=== PATIENT | male | born 1955 | race Caucasian/White ===

== ENCOUNTER 2017-05-25 12:08 | Inpatient (IN) | payer MEDICARE, MEDICAID ==
[~2017-05-25] VITALS: Ht 172.7 cm; Wt 72.1 kg
--- NOTE | 2017-05-25 13:23 | Emergency Room Report ---
History of Present Illness General Chief Complaint: Overdose Source: Patient, EMS Present Illness HPI Patient presents by paramedics for change in mental status and bizarre behavior Patient was found running around in the streets Patient had reported to pour bleach on his skin There was also question of ingestion Patient has history of depression denies any homicidal or suicidal thoughts There was reports of possible methamphetamine abuse as well Patient's history of present illness is limited as the patient has bizarre thought process cannot provide appropriate input Allergies: Coded Allergies: No Known Allergies (Unverified , 05/25/17) Patient History Limited by: medical condition Past Medical History: see triage record Pertinent Family History: unable to obtain Reviewed Nursing Documentation: PMH: Agreed; PSxH: Agreed Nursing Documentation-PMH Past Medical History: No History, Except For History Of Psychiatric Problem: Yes - Depression Review of Systems All Other Systems: limited - Other than the ones mentioned in the history of present illness all others are reviewed however they do stay limited due to the patient's mental status Physical Exam Vital Signs Date Time Temp Pulse Resp B/P (MAP) Pulse Ox O2 Delivery O2 Flow Rate FiO2 05/25/17 12:21 97.6 76 16 143/98 99 Room Air 97.5 Sp02 EP Interpretation: reviewed, normal General Appearance: no apparent distress Head: normocephalic, atraumatic Eyes: bilateral eye PERRL ENT: normal pharynx, no angioedema Neck: supple, thyroid normal Respiratory: lungs clear, normal breath sounds Cardiovascular #1: regular rate, rhythm, no edema Gastrointestinal: non tender, soft Genitourinary: no CVA tenderness Musculoskeletal: normal inspection Neurologic: alert, responsive, 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 nml as tested Psychiatric: no suicidal/homicidal ideation, anxious Skin: other - Patient has erythema involving bilateral forearms, forehead and left lower extremity in line with what appears to be likely contact erythema no blister formation no sloughing of the skin Lymphatic: no adenopathy Medical Decision Making Diagnostic Impression: Primary Impression: Acidosis Additional Impression: Acute psychosis ER Course Patient presents with bizarre activity and thought process Initial blood work is being obtained for further medical evaluation Patient shows signs of elevated white blood cell count with possible secondary cellulitis Kidney function is also elevated with signs of acidosis and dehydration patient require further hydration and antibiotics at this time is not medically clear for further evaluation requires initial inpatient care Labs Test 05/25/17 12:40 05/25/17 21:00 05/25/17 22:00 05/26/17 04:30 White Blood Count 16.8 K/UL (4.8-10.8) 12.9 K/UL (4.8-10.8) Red Blood Count 5.45 M/UL (4.70-6.10) 4.63 M/UL (4.70-6.10) Hemoglobin 17.4 G/DL (14.2-18.0) 15.0 G/DL (14.2-18.0) Hematocrit 48.6 % (42.0-52.0) 41.1 % (42.0-52.0) Mean Corpuscular Volume 89 FL (80-99) 89 FL (80-99) Mean Corpuscular Hemoglobin 31.9 PG (27.0-31.0) 32.4 PG (27.0-31.0) Mean Corpuscular Hemoglobin Concent 35.8 G/DL (32.0-36.0) 36.5 G/DL (32.0-36.0) Red Cell Distribution Width 11.3 % (11.6-14.8) 11.2 % (11.6-14.8) Platelet Count 199 K/UL (150-450) 184 K/UL (150-450) Mean Platelet Volume 6.3 FL (6.5-10.1) 6.2 FL (6.5-10.1) Neutrophils (%) (Auto) 81.0 % (45.0-75.0) 64.8 % (45.0-75.0) Lymphocytes (%) (Auto) 11.5 % (20.0-45.0) 24.9 % (20.0-45.0) Monocytes (%) (Auto) 6.9 % (1.0-10.0) 9.2 % (1.0-10.0) Eosinophils (%) (Auto) 0.1 % (0.0-3.0) 0.1 % (0.0-3.0) Basophils (%) (Auto) 0.6 % (0.0-2.0) 1.0 % (0.0-2.0) Sodium Level 132 MMOL/L (136-145) 133 MMOL/L (136-145) 133 MMOL/L (136-145) Potassium Level 4.5 MMOL/L (3.5-5.1) 4.2 MMOL/L (3.5-5.1) 3.7 MMOL/L (3.5-5.1) Chloride Level 94 MMOL/L (98-107) 100 MMOL/L (98-107) 100 MMOL/L (98-107) Carbon Dioxide Level 18 MMOL/L (21-32) 21 MMOL/L (21-32) 21 MMOL/L (21-32) Anion Gap 20 mmol/L (5-15) 12 mmol/L (5-15) 12 mmol/L (5-15) Blood Urea Nitrogen 69 mg/dL (7-18) 56 mg/dL (7-18) 39 mg/dL (7-18) Creatinine 2.2 MG/DL (0.55-1.30) 1.6 MG/DL (0.55-1.30) 1.1 MG/DL (0.55-1.30) Estimat Glomerular Filtration Rate 30.8 mL/min (>60) 44.5 mL/min (>60) > 60 mL/min (>60) Glucose Level 83 MG/DL (74-106) 132 MG/DL (74-106) 98 MG/DL (74-106) Calcium Level 8.7 MG/DL (8.5-10.1) 8.0 MG/DL (8.5-10.1) 7.9 MG/DL (8.5-10.1) Total Bilirubin 2.3 MG/DL (0.2-1.0) 1.7 MG/DL (0.2-1.0) 1.7 MG/DL (0.2-1.0) Direct Bilirubin 1.0 MG/DL (0.0-0.3) 0.8 MG/DL (0.0-0.3) 0.5 MG/DL (0.0-0.3) Aspartate Amino Transf (AST/SGOT) 477 U/L (15-37) 370 U/L (15-37) 288 U/L (15-37) Alanine Aminotransferase (ALT/SGPT) 209 U/L (12-78) 184 U/L (12-78) 156 U/L (12-78) Alkaline Phosphatase 94 U/L (46-116) 79 U/L (46-116) 70 U/L (46-116) Total Protein 8.4 G/DL (6.4-8.2) 7.4 G/DL (6.4-8.2) 6.8 G/DL (6.4-8.2) Albumin 4.2 G/DL (3.4-5.0) 3.5 G/DL (3.4-5.0) 3.0 G/DL (3.4-5.0) Globulin 4.2 g/dL 3.9 g/dL 3.8 g/dL Albumin/Globulin Ratio 1.0 (1.0-2.7) 0.9 (1.0-2.7) 0.8 (1.0-2.7) Salicylates Level 1.9 ug/mL (2.8-20) Urine Opiates Screen Negative (NEGATIVE) Acetaminophen Level < 2 MCG/ML (10-30) Urine Barbiturates Screen Negative (NEGATIVE) Phencyclidine (PCP) Screen Negative (NEGATIVE) Urine Amphetamines Screen Positive (NEGATIVE) Urine Benzodiazepines Screen Negative (NEGATIVE) Urine Cocaine Screen Negative (NEGATIVE) Urine Marijuana (THC) Screen Positive (NEGATIVE) Serum Alcohol < 3 mg/dL Urine Random Sodium 16 mmol/L (20-110) Urine Creatinine 83.1 MG/DL (30.0-125.0) Uric Acid 10.3 MG/DL (2.6-7.2) 8.8 MG/DL (2.6-7.2) Total Creatine Kinase 8800 U/L (26-308) 4911 U/L (26-308) Magnesium Level 2.5 MG/DL (1.8-2.4) Vitamin B12 Level 766 PG/ML (193-986) Folate 17.1 NG/ML (8.6-58.9) Thyroid Stimulating Hormone (TSH) 1.908 uiU/mL (0.358-3.740) Test 05/26/17 05:00 Urine Osmolality 715 mOsm/kg (429-449) Rhythm Strip Diag. Results EP Interpretation: yes Rate: 78 Rhythm: NSR, no PVC's, no ectopy Last Vital Signs Date Time Temp Pulse Resp B/P (MAP) Pulse Ox O2 Delivery O2 Flow Rate FiO2 05/25/17 12:21 97.6 76 16 143/98 99 Room Air 97.5 Status: improved Disposition: ADMITTED INPATIENT Condition: Serious Referrals: NOT CHOSEN IPA/,REFERRING (PCP) Jennifer Joseph DO May 25, 2017 13:23
[2017-05-25 13:39] LABS: ANION GAP 20 mmol/L (5-15); BLOOD UREA NITROGEN 69 mg/dL (7-18); CALCIUM 8.7 MG/DL (8.5-10.1); CARBON DIOXIDE 18 MMOL/L (21-32); CHLORIDE 94 MMOL/L (98-107); CREATININE 2.2 MG/DL (0.55-1.30); POTASSIUM 4.5 MMOL/L (3.5-5.1); SODIUM 132 MMOL/L (136-145)
[2017-05-25 13:42] LABS: BASOPHILS % (AUTO) 0.6 % (0.0-2.0); EOSINOPHILS % (AUTO) 0.1 % (0.0-3.0); HEMATOCRIT 48.6 % (42.0-52.0); HEMOGLOBIN 17.4 G/DL (14.2-18.0); LYMPHOCYTES % (AUTO) 11.5 % (20.0-45.0); MEAN CORPUSCULAR VOLUME 89 FL (80-99); MONOCYTES % (AUTO) 6.9 % (1.0-10.0); PLATELET COUNT 199 K/UL (150-450); RED BLOOD COUNT 5.45 M/UL (4.70-6.10); RED CELL DISTRIBUTION WIDTH 11.3 % (11.6-14.8); WHITE BLOOD COUNT 16.8 K/UL (4.8-10.8)
[2017-05-25 13:49] LABS: ALANINE AMINOTRANSFERASE 209 U/L (12-78); ALBUMIN 4.2 G/DL (3.4-5.0); ALKALINE PHOSPHATASE 94 U/L (46-116); ASPARTATE AMINO TRANSFERASE 477 U/L (15-37); BILIRUBIN,TOTAL 2.3 MG/DL (0.2-1.0)
[2017-05-25 14:34] VITALS: BP 153/93
[2017-05-25] MEDS ORDERED: cefTRIAXone 1 GM in NS 55 ML IVPB ONE (14:45)
[2017-05-25 15:45] VITALS: BP 133/75
[2017-05-25 17:13] VITALS: BP 124/81
[2017-05-25 18:09] VITALS: BP 128/85
[2017-05-25 18:28] VITALS: BP 123/74
[2017-05-25] MEDS ORDERED: LORazepam 1mg tab ORAL PRN (19:00)
[2017-05-25 20:00] VITALS: BP 132/73
[2017-05-25] MEDS ORDERED: Vancomycin 1250mg/D5W 250ml IVPB ONE (21:00)
[2017-05-25] MEDS ORDERED: Levofloxacin 500mg tab ORAL ONE (21:00)
[2017-05-25] MEDS: Heparin 5000 units/ml inj SUBQ SCH (21:28)
[2017-05-25 22:22] LABS: ANION GAP 12 mmol/L (5-15); BLOOD UREA NITROGEN 56 mg/dL (7-18); CARBON DIOXIDE 21 MMOL/L (21-32); CHLORIDE 100 MMOL/L (98-107); CREATININE 1.6 MG/DL (0.55-1.30); POTASSIUM 4.2 MMOL/L (3.5-5.1); SODIUM 133 MMOL/L (136-145)
[2017-05-25 22:36] LABS: ALANINE AMINOTRANSFERASE 184 U/L (12-78); ALBUMIN 3.5 G/DL (3.4-5.0); ALBUMIN/GLOBULIN RATIO 0.9 (1.0-2.7); ALKALINE PHOSPHATASE 79 U/L (46-116); ASPARTATE AMINO TRANSFERASE 370 U/L (15-37); BILIRUBIN,TOTAL 1.7 MG/DL (0.2-1.0); CREATINE KINASE 8800 U/L (26-308)
[2017-05-25 22:37] LABS: BILIRUBIN,DIRECT 0.8 MG/DL (0.0-0.3)
[2017-05-26] VITALS (7 sets, daily range): BP systolic 106–126; BP diastolic 64–72
--- NOTE | 2017-05-26 00:46 | History and Physical Report ---
DATE OF ADMISSION: 05/25/2017 REASON FOR ADMISSION: Altered mentation and overdose. HISTORY OF PRESENT ILLNESS: This is a 61-year-old male with psychiatric disorder who was found by paramedics in the street displaying bizarre behavior. He was running around. He apparently had poured some bleach on his skin because he thought he had scabies. He also may have drank some of it. He denied any suicidal or homicidal thoughts and said that he overdosed with methamphetamines at a alliance party. He also admitted to history of depression. PAST MEDICAL HISTORY: Includes depression and hepatitis C infection otherwise unobtainable at this time. MEDICATIONS: Unknown. ALLERGIES: None known. SOCIAL HISTORY: Positive for smoking, substance abuse. Denies alcohol abuse. FAMILY HISTORY: Not obtainable. REVIEW OF SYSTEMS: Cannot be reliably obtained from the patient at this time. PHYSICAL EXAMINATION: GENERAL: He is alert, rambling thoughts and speech noted, direct answer to any questioning is not possible. VITAL SIGNS: Blood pressure 143/98, pulse 76, respiratory rate 16, afebrile. HEENT: Conjunctivae pink. Sclerae are anicteric. Oropharynx clear. NECK: Supple. No thyromegaly. LUNGS: Clear. CARDIAC: Regular rhythm and rate. Normal S1 and S2 with no murmur, rub, or gallop. ABDOMEN: Soft and nontender with no hepatomegaly. EXTREMITIES: Without edema. No motor or sensory deficits. No tremor. No asterixis. SKIN: Notable for diffuse erythema and open skin areas over the forearms bilaterally, over the forehead, and over the left leg predominantly. There is no blister formation. There is no adenopathy. LABORATORY DATA: White count 16.8, hemoglobin 17.4, platelets 199. Toxicology screen is positive for amphetamines and marijuana. Sodium 132, potassium 4.5, chloride 94, bicarb 18, BUN 69, creatinine 2.2. AST and ALT 477 and 209. IMPRESSION: 1. Cellulitis. 2. Possible sepsis. 3. Possible scabies. 4. Possible chemical reaction to skin. 5. Metabolic acidosis. 6. Hyponatremia. 7. Hypochloremia. 8. Acute renal failure. 9. History of hepatitis C now with transaminitis. 10. Altered mentation and metabolic encephalopathy. 11. History of depression. PLAN: 1. Cardiac monitoring. 2. Saline hydration. 3. Sitter at bedside. 4. Psych evaluation. 5. Broad-spectrum antibiotics. 6. Skin care. 7. DVT prophylaxis. 8. Metabolic profile. 9. Followup renal and hepatic function studies. Pedro Page M.D. DR: Jarrell JOB#: [id number] CC:
[2017-05-26 05:43] LABS: EOSINOPHILS % (AUTO) 0.1 % (0.0-3.0); HEMATOCRIT 41.1 % (42.0-52.0); LYMPHOCYTES % (AUTO) 24.9 % (20.0-45.0); MEAN CORPUSCULAR VOLUME 89 FL (80-99); MONOCYTES % (AUTO) 9.2 % (1.0-10.0); NEUTROPHILS % (AUTO) 64.8 % (45.0-75.0); PLATELET COUNT 184 K/UL (150-450); RED BLOOD COUNT 4.63 M/UL (4.70-6.10); RED CELL DISTRIBUTION WIDTH 11.2 % (11.6-14.8); WHITE BLOOD COUNT 12.9 K/UL (4.8-10.8)
[2017-05-26 06:09] LABS: ALANINE AMINOTRANSFERASE 156 U/L (12-78); ALBUMIN/GLOBULIN RATIO 0.8 (1.0-2.7); ALKALINE PHOSPHATASE 70 U/L (46-116); ANION GAP 12 mmol/L (5-15); ASPARTATE AMINO TRANSFERASE 288 U/L (15-37); BILIRUBIN,TOTAL 1.7 MG/DL (0.2-1.0); BLOOD UREA NITROGEN 39 mg/dL (7-18); CALCIUM 7.9 MG/DL (8.5-10.1); CARBON DIOXIDE 21 MMOL/L (21-32); CHLORIDE 100 MMOL/L (98-107); CREATININE 1.1 MG/DL (0.55-1.30); POTASSIUM 3.7 MMOL/L (3.5-5.1); SODIUM 133 MMOL/L (136-145)
[2017-05-26 06:14] LABS: CREATINE KINASE 4911 U/L (26-308)
[2017-05-26 06:22] LABS: BILIRUBIN,DIRECT 0.5 MG/DL (0.0-0.3)
[2017-05-26] MEDS: Heparin 5000 units/ml inj SUBQ SCH ×2 (08:32→21:24)
--- NOTE | 2017-05-26 15:48 | Consultation ---
History of Present Illness General Date patient seen: May 26, 2017 Chief Complaint: Overdose Present Illness HPI 61-year-old male with hx of depression and meth use who was found by paramedics in the street displaying bizarre behavior. The pt was running around and was not cooperating with eval. the pt was speaking fast and his speech was pressured. the pt stated that he mixed the alcohol and meth. the pt stated that he has hx of alcohol dependence and substance use for a several years. the pt denied si/hi. the pt denied psychotic meds/ the pt is not a danger to self or others. the pt stated that he would go back to AA. Allergies: Coded Allergies: No Known Allergies (Unverified , 05/25/17) Patient History Limited by: medical condition History Provided By: Patient, Medical Record, PMD Healthcare decision maker self Resuscitation status Full Code Advanced Directive on File No Past Medical/Surgical History Past Medical/Surgical History: (1) Altered mental status (2) Acidosis (3) Acute psychosis Review of Systems Psychiatric: Reports: prior hx, depressed feelings, emotional problems Physical Exam General Appearance: no apparent distress, alert Neurologic: alert, oriented x 3, responsive, normal mood/affect Last 24 Hour Vital Signs Date Time Temp Pulse Resp B/P (MAP) Pulse Ox O2 Delivery O2 Flow Rate FiO2 05/26/17 12:00 97.7 70 20 109/64 96 Room Air 97.7 70 05/26/17 11:43 70 05/26/17 08:00 97.5 63 20 112/66 99 Room Air 97.5 63 05/26/17 07:32 72 05/26/17 04:00 97.0 67 20 109/66 99 Room Air 97.0 67 05/26/17 04:00 67 05/26/17 00:00 87 05/26/17 00:00 98.8 87 20 126/72 99 Room Air 98.8 87 05/25/17 20:00 94 05/25/17 20:00 98.2 94 20 132/73 99 Room Air 98.2 94 05/25/17 18:32 97.5 88 24 128/86 100 Room Air 05/25/17 18:28 98.6 97 24 123/74 99 Room Air 98.6 97 05/25/17 18:09 88 24 128/85 100 Room Air 05/25/17 17:13 82 24 124/81 100 Room Air 05/25/17 15:45 97.5 82 28 133/75 100 Room Air 97.5 Intake and Output 05/25/17 05/26/17 19:00 07:00 Intake Total 1250 ml Output Total 300 ml Balance 950 ml IV Total 1250 ml Output Urine Total 300 ml # Voids 1 1 Laboratory Tests Test 05/25/17 21:00 05/25/17 22:00 05/26/17 04:30 05/26/17 05:00 Urine Random Sodium 16 mmol/L (20-110) L Urine Creatinine 83.1 MG/DL (30.0-125.0) Sodium Level 133 MMOL/L (136-145) L 133 MMOL/L (136-145) L Potassium Level 4.2 MMOL/L (3.5-5.1) 3.7 MMOL/L (3.5-5.1) Chloride Level 100 MMOL/L (98-107) 100 MMOL/L (98-107) Carbon Dioxide Level 21 MMOL/L (21-32) 21 MMOL/L (21-32) Anion Gap 12 mmol/L (5-15) 12 mmol/L (5-15) Blood Urea Nitrogen 56 mg/dL (7-18) H 39 mg/dL (7-18) H Creatinine 1.6 MG/DL (0.55-1.30) H 1.1 MG/DL (0.55-1.30) Estimat Glomerular Filtration Rate 44.5 mL/min (>60) > 60 mL/min (>60) Glucose Level 132 MG/DL (74-106) H 98 MG/DL (74-106) Uric Acid 10.3 MG/DL (2.6-7.2) H 8.8 MG/DL (2.6-7.2) H Calcium Level 8.0 MG/DL (8.5-10.1) L 7.9 MG/DL (8.5-10.1) L Total Bilirubin 1.7 MG/DL (0.2-1.0) H 1.7 MG/DL (0.2-1.0) H Direct Bilirubin 0.8 MG/DL (0.0-0.3) H 0.5 MG/DL (0.0-0.3) H Aspartate Amino Transf (AST/SGOT) 370 U/L (15-37) H 288 U/L (15-37) H Alanine Aminotransferase (ALT/SGPT) 184 U/L (12-78) H 156 U/L (12-78) H Alkaline Phosphatase 79 U/L (46-116) 70 U/L (46-116) Total Creatine Kinase 8800 U/L (26-308) H 4911 U/L (26-308) H Total Protein 7.4 G/DL (6.4-8.2) 6.8 G/DL (6.4-8.2) Albumin 3.5 G/DL (3.4-5.0) 3.0 G/DL (3.4-5.0) L Globulin 3.9 g/dL 3.8 g/dL Albumin/Globulin Ratio 0.9 (1.0-2.7) L 0.8 (1.0-2.7) L White Blood Count 12.9 K/UL (4.8-10.8) H Red Blood Count 4.63 M/UL (4.70-6.10) L Hemoglobin 15.0 G/DL (14.2-18.0) Hematocrit 41.1 % (42.0-52.0) L Mean Corpuscular Volume 89 FL (80-99) Mean Corpuscular Hemoglobin 32.4 PG (27.0-31.0) H Mean Corpuscular Hemoglobin Concent 36.5 G/DL (32.0-36.0) H Red Cell Distribution Width 11.2 % (11.6-14.8) L Platelet Count 184 K/UL (150-450) Mean Platelet Volume 6.2 FL (6.5-10.1) L Neutrophils (%) (Auto) 64.8 % (45.0-75.0) Lymphocytes (%) (Auto) 24.9 % (20.0-45.0) Monocytes (%) (Auto) 9.2 % (1.0-10.0) Eosinophils (%) (Auto) 0.1 % (0.0-3.0) Basophils (%) (Auto) 1.0 % (0.0-2.0) Magnesium Level 2.5 MG/DL (1.8-2.4) H Vitamin B12 Level 766 PG/ML (193-986) Folate 17.1 NG/ML (8.6-58.9) Thyroid Stimulating Hormone (TSH) 1.908 uiU/mL (0.358-3.740) Urine Osmolality 715 mOsm/kg (429-449) H Height (Feet): 5 Height (Inches): 8.00 Weight (Pounds): 159 Medications Current Medications Medications (Trade) Dose Ordered Sig/Piedad Route PRN Reason Start Time Stop Time Status Last Admin Dose Admin Heparin Sodium (Porcine) (Heparin 5000 units/ml) 5,000 units EVERY 12 HOURS SUBQ 05/25/17 21:00 06/24/17 20:59 05/26/17 08:32 Levofloxacin (Levaquin) 250 mg QHS ORAL 05/26/17 21:00 06/01/17 20:59 Lorazepam (Ativan) 1 mg Q6H PRN ORAL For Anxiety 05/25/17 19:00 06/01/17 18:59 Sodium Chloride 1,000 ml @ 150 mls/hr Q6H40M IV 05/26/17 15:30 06/25/17 15:29 Vancomycin HCl (Vanco rx to dose) 1 ea DAILYPRN PRN MISC Per rx protocol 05/25/17 19:00 06/24/17 18:59 Vancomycin HCl 1 gm/Dextrose 275 ml @ 183.708 mls/hr Q24H IVPB 05/26/17 21:00 05/31/17 20:59 Assessment/Plan Status: stable, progressing Assessment/Plan MDD alcohol dependence meth use depakote 500mg qhs -valium prn for alcohol w/d -risperdal 1mg qhs Javier Hogan M.D. May 26, 2017 15:48
[2017-05-26] MEDS: NS w/KCl 20mEq 1,000 ML IV SCH ×2 (16:00→22:18)
[2017-05-26] MEDS ORDERED: Vancomycin 1gm in D5W 275ml IVPB SCH (21:00)
[2017-05-26] MEDS ORDERED: Depakote 500mg tab ORAL SCH (21:00)
--- NOTE | 2017-05-26 21:45 | Consultation ---
DATE OF CONSULTATION: 05/26/2017 NEPHROLOGY CONSULTATION CONSULTING PHYSICIAN: Mark Anthony Saavedra M.D. REASON FOR CONSULTATION: Elevated BUN and creatinine. HISTORY OF PRESENT ILLNESS: The patient is a 61-year-old man, who apparently presented with altered mental status. He was found to have positive methamphetamine in drug screen is well as marijuana. He says he drinks a moderate amount of alcohol several times a week and had a small amount of methamphetamine on the day of admission. He presented with abnormal laboratories and confusion. He also has a history of hepatitis C in the past. PAST SURGICAL HISTORY: None. ALLERGIES: None known. HABITS: Include cigarette smoking, alcohol, and amphetamines as above. He used heroin in the past for very short periods of time. SYSTEM REVIEW: HEAD EYES, EARS, NOSE, AND THROAT: Vision and hearing is good. ENDOCRINE: No awareness of diabetes or thyroid disease. PULMONARY: Mild cough when smoking. No asthma or TB. CARDIAC: No angina or NC. GASTROINTESTINAL: No gastrointestinal bleeding or ulcers. GENITOURINARY: No dysuria, hematuria, or kidney stones. NEUROLOGIC: No CVA, syncope, or seizures. PHYSICAL EXAMINATION: GENERAL: The patient is a well-developed man, alert, lying in bed. VITAL SIGNS: Temperature 97.7, pulse 70, respirations 20, and blood pressure 109/64. HEENT: Head, eyes, ears, nose, and throat, sclerae are nonicteric. Ocular motions intact in all directions. Oral mucosa moist. NECK: No adenopathy. LUNGS: Clear. HEART: Regular rhythm. No murmur. ABDOMEN: Soft without organomegaly or masses. EXTREMITIES: No edema, cyanosis, or clubbing. NEUROLOGIC: No focal findings. SKIN: Shows some erythema diffuse and some abrasions to the forearms and arms. PSYCHIATRIC: The patient has rambling pressured speech. PERTINENT LABORATORIES: White count 12.9, hemoglobin 15, improved from 16.8 to 17.4. The BUN is 69 and creatinine 2.2 on admission, today 39 and 1.1. Sodium 133, potassium 3.7, chloride 100, and CO2 21. CK 8800 it is down to . He has elevated liver enzymes. Albumin is 3.0. Urine osmolality 715, urine sodium is 16. IMPRESSION: 1. Acute kidney injury, likely from dehydration. 2. Rhabdomyolysis contributes to acute kidney injury. 3. History of use of nonsteroidal anti-inflammatory agents. 4. Methamphetamine user. 5. History of hepatitis C. PLAN: Continuous vigorous hydration and follow up on his serial CPKs. Mark Anthony Saavedra M.D. DR: PAT JOB#: [id number] CC:
--- NOTE | 2017-05-26 22:15 | Consultation ---
DATE OF CONSULTATION: 05/26/2017 INFECTIOUS DISEASE CONSULTATION CONSULTING PHYSICIAN: Marquise Grant M.D. PRIMARY ATTENDING PHYSICIAN: Pedro Page M.D. REASON FOR CONSULTATION: Cellulitis. HISTORY OF PRESENT ILLNESS: The patient is a 61-year-old white male admitted yesterday with altered mental status. The patient has bizarre behavior and psychosis. He states that he thought he had scabies and he poured some bleach over his body and also drank some bleach. PAST MEDICAL HISTORY: Significant for emphysema, hepatitis C, major depression, and degenerative joint disease. He had some liver damage. MEDICATIONS: Levaquin, vancomycin, heparin, sodium chloride, and lorazepam. ALLERGIES: No known drug allergy. SOCIAL HISTORY: He is single. He is originally from [place]. On disability. Smoking one pack cigarettes daily from 1971. Drinking alcohol. Use drugs, methamphetamine. REVIEW OF SYSTEMS: No significant pain. No nausea. No vomiting. He has chronic coughing. No problem passing urine. PHYSICAL EXAMINATION: VITAL SIGNS: Temperature 97.7, pulse is 70, and blood pressure is 109/64. GENERAL APPEARANCE: No acute distress. HEAD AND NECK: Hartly conjunctivae. No significant oral lesion. HEART: S1, S2. Regular. Normal rate. LUNGS: Clear. ABDOMEN: Soft and nontender. EXTREMITIES: He has no edema. SKIN: The patient erythema/ulcers in forearms looks like chemical burning. LABORATORY DATA: WBC today is 12.9, hemoglobin 15, hematocrit 41.1, and platelets 184,000. Sodium 137, potassium 3.7, chloride 100, bicarbonate 21, BUN 39, and creatinine 1.1. BUN at the time of admission was 69 and creatinine 2.2. Magnesium 2.5. Bilirubin is 1.7, it was 2.3 before. AST 288 and ALT 156. CK-MB 4911, it was 800 before. IMPRESSION: Chemical burn secondary to bleach more significant in forearms, less likely cellulitis. Also doubt that the patient has scabies. The patient has acute renal failure, worsening of liver function, elevated transaminases, hepatitis C, major depression, psychosis, and degenerative joint disease of the spine. RECOMMENDATION: We will continue current antibiotic Levaquin and vancomycin. If the patient stays stable and culture remains negative, we will discontinue antibiotic. The patient will decide about outpatient treatment for hepatitis C. At the end of my exam, I thank Dr. Page for involving me in the care of this patient. Marquise Grant M.D. DR: RD JOB#: [id number] CC: OLIVIA
[2017-05-27] VITALS: BP 118/72
[2017-05-27 04:00] VITALS: BP 102/55
--- NOTE | 2017-05-27 04:45 | Progress Note ---
DATE: 05/26/2017 INTERNAL MEDICINE AND CARDIOLOGY PROGRESS NOTE SUBJECTIVE: The patient is more directable and calm today. Itching has decreased. No chest pain or shortness of breath. He is on IV antibiotics and skin care. OBJECTIVE: VITAL SIGNS: Blood pressure 109/66, pulse 67, respirations 23, afebrile, and room air oxygen saturation 95%. No bleeding or erythema from skin lesions on extremities HEENT: Conjunctiva pink. Oropharynx clear. NECK: Supple. LUNGS: Clear. CARDIAC: Regular. Normal S1, S2 with no murmur. ABDOMEN: Soft. EXTREMITIES: No edema. LABORATORY DATA: Sodium 133, potassium 3.7, bicarbonate 21, BUN 39, and creatinine 1.1. Magnesium 2.5. AST and ALT have decreased to 188 and 156 respectively. CK has decreased from 8800 to 4900. B12, folate, and thyroid function are within normal limits. IMPRESSION: 1. Metabolic and toxic encephalopathy. 2. Metabolic acidosis. 3. Rhabdomyolysis. 4. Acute renal failure. 5. Methamphetamine use. 6. Hepatitis C positive. 7. Acute on chronic transaminitis. 8. Chemical carcamo with secondary cellulitis. 9. Leukocytosis, improved. 10. Mild protein-calorie malnutrition. PLAN: 1. Antimicrobials. 2. Hydration. 3. Monitor chemistry panel and CK level. 4. Monitor renal function. 5. Skin care. 6. Appreciate psychiatric consultation. 7. Protein supplement. 8. Continue cardiac monitoring and sitter at bedside. Pedro Page M.D. DR: TREVOR JOB#: [id number] CC:
[2017-05-27] MEDS: NS w/KCl 20mEq 1,000 ML IV SCH ×2 (05:00→11:45)
[2017-05-27 05:22] LABS: ANION GAP 8 mmol/L (5-15); BLOOD UREA NITROGEN 19 mg/dL (7-18); CALCIUM 7.6 MG/DL (8.5-10.1); CARBON DIOXIDE 25 MMOL/L (21-32); CHLORIDE 104 MMOL/L (98-107); CREATINE KINASE 1347 U/L (26-308); CREATININE 0.8 MG/DL (0.55-1.30); PHOSPHORUS 1.8 MG/DL (2.5-4.9); POTASSIUM 4.3 MMOL/L (3.5-5.1); SODIUM 137 MMOL/L (136-145)
[2017-05-27 08:00] VITALS: BP 112/55
[2017-05-27] MEDS: Heparin 5000 units/ml inj SUBQ SCH ×2 (08:13→21:57)
[2017-05-27] MEDS ORDERED: Thiamine 100mg tab ORAL SCH (09:00)
[2017-05-27 12:00] VITALS: BP 116/64
[2017-05-27] MEDS ORDERED: NS w/KCl 20mEq 1,000 ML IV SCH (15:30)
--- NOTE | 2017-05-27 15:35 | Nephrology Progress Note ---
Assessment/Plan Problem List: (1) Hypophosphatemia (2) Rhabdomyolysis (3) SEBAS (acute kidney injury) (4) Altered mental status Plan iv adjust, phos ordered Subjective Constitutional: Reports: weakness HEENT: Reports: no symptoms Genitourinary: Reports: no symptoms Neurologic/Psychiatric: Reports: no symptoms Objective Objective Last 24 Hour Vital Signs Date Time Temp Pulse Resp B/P (MAP) Pulse Ox O2 Delivery O2 Flow Rate FiO2 05/27/17 12:00 97.7 62 20 116/64 97 Room Air 97.7 05/27/17 11:47 60 05/27/17 08:00 97.3 62 20 112/55 96 Room Air 97.3 05/27/17 07:56 74 05/27/17 04:00 98.4 68 20 102/55 98 Room Air 98.4 05/27/17 03:55 56 05/27/17 00:00 99.0 64 20 118/72 97 Room Air 99.0 05/26/17 23:39 73 05/26/17 20:00 98.7 68 20 110/70 97 Room Air 98.7 68 05/26/17 19:06 67 05/26/17 16:00 98.1 67 23 109/66 95 Room Air 98.1 67 Intake and Output 05/26/17 05/27/17 19:00 07:00 Intake Total 1880 ml 1205.056 ml Output Total 800 ml 700 ml Balance 1080 ml 505.056 ml Intake Oral 680 ml IV Total 1200 ml 1205.056 ml Output Urine Total 800 ml 700 ml Laboratory Tests 05/27/17 03:25: Sodium Level 137, Potassium Level 4.3, Chloride Level 104, Carbon Dioxide Level 25, Anion Gap 8, Blood Urea Nitrogen 19H, Creatinine 0.8, Estimat Glomerular Filtration Rate > 60, Glucose Level 127H, Calcium Level 7.6L, Phosphorus Level 1.8L, Total Creatine Kinase 1347H Height (Feet): 5 Height (Inches): 8.00 Weight (Pounds): 159 General Appearance: no apparent distress, alert EENT: normal ENT inspection Neck: normal alignment Cardiovascular: normal rate Respiratory/Chest: lungs clear Abdomen: non tender, soft 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
[2017-05-27 16:00] VITALS: BP 108/63
[2017-05-27] MEDS: Potassium Phosphate 15 MEQ in 1/2 NS 1000ml 1,000 ML IV SCH (17:30)
[2017-05-27] MEDS ORDERED: Phospha 250 Neutral tab ORAL SCH (18:00)
[2017-05-27 20:00] VITALS: BP 122/75
[2017-05-27] MEDS ORDERED: Potassium Phosphate 15 MEQ in 1/2 NS 1000ml 1,000 ML IV SCH (21:00)
[2017-05-27] MEDS: Depakote 500mg tab ORAL SCH ×2 (21:00→21:54)
[2017-05-27] MEDS: Vancomycin 1 GM in D5W 275 ML IVPB SCH (21:56)
--- NOTE | 2017-05-27 22:30 | Progress Note ---
DATE: 05/27/2017 CARDIOLOGY PROGRESS NOTE SUBJECTIVE: The patient has no hold, it is no longer necessary. He is calm and cooperative. He notes no abdominal pain. He is tolerating his diet. Monitored rhythm, sinus. OBJECTIVE: VITAL SIGNS: Blood pressure 112/55, pulse 52, and respiratory rate 20. Afebrile. SKIN: With no active erythema or weeping. NECK: Supple. LUNGS: Clear. CARDIAC: Regular. Normal S1, S2. There is no murmur. ABDOMEN: Soft. EXTREMITIES: Are without edema. LABORATORY DATA: BUN 19 and creatinine 0.8. Phosphorus 1.8. CK is down to 1347. IMPRESSION: 1. Recovering rhabdomyolysis. 2. Resolving acute renal failure. 3. Improving cellulitis of the extremities. 4. Status post methamphetamine use. 5. Bipolar disorder. 6. History of hepatitis C. 7. Metabolic acidosis, resolved. 8. Mild protein-calorie malnutrition. 9. Hypophosphatemia. PLAN: 1. Decrease IV fluids. 2. Continue antimicrobials. 3. Discontinue telemetry. 4. Replace phosphorus. 5. Continue monitoring metabolic parameters placement. Pedro Page M.D. DR: LISA JOB#: [id number] CC:
[2017-05-28] VITALS: BP 110/60
[2017-05-28] MEDS: Potassium Phosphate 15 MEQ in 1/2 NS 1000ml 1,000 ML IV SCH ×3 (01:32→17:12)
[2017-05-28 04:00] VITALS: BP 127/72
[2017-05-28 07:26] LABS: ANION GAP 7 mmol/L (5-15); BLOOD UREA NITROGEN 9 mg/dL (7-18); CALCIUM 7.9 MG/DL (8.5-10.1); CARBON DIOXIDE 25 MMOL/L (21-32); CHLORIDE 104 MMOL/L (98-107); CREATINE KINASE 811 U/L (26-308); CREATININE 0.7 MG/DL (0.55-1.30); PHOSPHORUS 2.4 MG/DL (2.5-4.9); POTASSIUM 4.3 MMOL/L (3.5-5.1); SODIUM 136 MMOL/L (136-145)
[2017-05-28 08:00] VITALS: BP 122/66
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
[2017-05-28] MEDS: Phospha 250 Neutral tab ORAL SCH ×3 (09:27→17:12)
[2017-05-28] MEDS: Thiamine 100mg tab ORAL SCH (09:27)
[2017-05-28] MEDS: Heparin 5000 units/ml inj SUBQ SCH ×2 (09:32→20:55)
[2017-05-28] MEDS ORDERED: 1/2 NS 1000ml IV ONE (10:51)
[2017-05-28 12:07] VITALS: BP 124/79
--- NOTE | 2017-05-28 12:59 | Nephrology Progress Note ---
Assessment/Plan Problem List: (1) Hypophosphatemia (2) Rhabdomyolysis (3) SEBAS (acute kidney injury) (4) Altered mental status Plan iv adjust, phos ordered Subjective Constitutional: Reports: weakness HEENT: Reports: no symptoms Genitourinary: Reports: no symptoms Neurologic/Psychiatric: Reports: no symptoms Objective Objective Last 24 Hour Vital Signs Date Time Temp Pulse Resp B/P (MAP) Pulse Ox O2 Delivery O2 Flow Rate FiO2 05/28/17 12:07 97.9 57 18 124/79 97 Room Air 97.9 05/28/17 08:00 97.6 63 18 122/66 98 Room Air 97.6 05/28/17 04:00 97.7 57 18 127/72 99 Room Air 97.7 05/28/17 00:00 Room Air 05/28/17 00:00 98.2 66 19 110/60 97 Room Air 98.2 05/27/17 20:55 Room Air 05/27/17 20:00 97.9 64 18 122/75 97 Room Air 97.9 05/27/17 16:00 98.2 61 20 108/63 98 Room Air 98.2 05/27/17 15:52 61 Intake and Output 05/27/17 05/28/17 19:00 07:00 Intake Total 1709.5 ml 1270.000 ml Output Total 1600 ml Balance 109.5 ml 1270.000 ml Intake Oral 532 ml 120 ml IV Total 1177.5 ml 1150.000 ml Output Urine Total 1600 ml # Voids 3 # Bowel Movements 1 Laboratory Tests 05/28/17 05:50: Sodium Level 136, Potassium Level 4.3, Chloride Level 104, Carbon Dioxide Level 25, Anion Gap 7, Blood Urea Nitrogen 9, Creatinine 0.7, Estimat Glomerular Filtration Rate > 60, Glucose Level 111H, Calcium Level 7.9L, Phosphorus Level 2.4L, Total Creatine Kinase 811H Height (Feet): 5 Height (Inches): 8.00 Weight (Pounds): 159 General Appearance: no apparent distress, alert EENT: normal ENT inspection Neck: normal alignment Cardiovascular: normal rate Respiratory/Chest: lungs clear Abdomen: non tender, soft Extremities: moderate edema 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
[2017-05-28 16:00] VITALS: BP 128/76
[2017-05-28 20:00] VITALS: BP 131/77
[2017-05-28] MEDS: Depakote 500mg tab ORAL SCH (20:57)
[2017-05-28] MEDS: Vancomycin 1 GM in D5W 275 ML IVPB SCH (21:17)
[2017-05-29] VITALS: BP 140/84
[2017-05-29] MEDS: Potassium Phosphate 15 MEQ in 1/2 NS 1000ml 1,000 ML IV SCH ×3 (02:15→18:43)
[2017-05-29 04:00] VITALS: BP 138/81
--- NOTE | 2017-05-29 04:30 | Progress Note ---
DATE: 05/28/2017 CARDIOLOGY PROGRESS NOTE SUBJECTIVE: The patient is without new complaints. IV fluids have been adjusted. He is afebrile. OBJECTIVE: VITAL SIGNS: Blood pressure 124/79, heart rate 57, and respirations 18. LUNGS: Clear. CARDIAC: Regular. Normal S1 and S2. ABDOMEN: Soft. EXTREMITIES: No edema. LABORATORY DATA: Sodium 136, potassium 4.3, BUN 9, and creatinine 0.7. CK 811. Phosphorus 2.4. IMPRESSION: 1. Methamphetamine abuse. 2. Acute renal failure, resolved. 3. Rhabdomyolysis, recovered. 4. Cellulitis, resolving. 5. Bipolar disorder. 6. History of hepatitis C, resolved. 7. Metabolic acidosis. 8. Hypophosphatemia, improving. PLAN: 1. Replace electrolytes and potassium. 2. Adjust IV hydration. 3. Off telemetry now. 4. Placement issues will be addressed with social service tomorrow. Pedro Page M.D. DR: Evan JOB#: [id number] CC:
[2017-05-29 07:17] LABS: ANION GAP 6 mmol/L (5-15); BLOOD UREA NITROGEN 10 mg/dL (7-18); CALCIUM 8.3 MG/DL (8.5-10.1); CARBON DIOXIDE 27 MMOL/L (21-32); CHLORIDE 104 MMOL/L (98-107); CREATINE KINASE 327 U/L (26-308); CREATININE 0.7 MG/DL (0.55-1.30); PHOSPHORUS 3.3 MG/DL (2.5-4.9); POTASSIUM 4.6 MMOL/L (3.5-5.1); SODIUM 137 MMOL/L (136-145)
[2017-05-29 08:00] VITALS: BP 145/71
[2017-05-29] MEDS: Phospha 250 Neutral tab ORAL SCH ×3 (08:47→18:43)
[2017-05-29] MEDS: Thiamine 100mg tab ORAL SCH (08:47)
[2017-05-29] MEDS: Vancomycin 1250mg/D5W 250ml IVPB SCH ×2 (08:47→20:20)
[2017-05-29] MEDS: Heparin 5000 units/ml inj SUBQ SCH ×2 (08:48→20:19)
[2017-05-29 12:10] VITALS: BP 132/79
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
[2017-05-29 16:13] VITALS: BP 135/75
--- NOTE | 2017-05-29 19:05 | Nephrology Progress Note ---
Assessment/Plan Problem List: (1) Hypophosphatemia (2) Rhabdomyolysis (3) SEBAS (acute kidney injury) (4) Altered mental status Plan iv adjust, decrease rate, rhabdo resolving phos ordered Subjective Constitutional: Reports: weakness HEENT: Reports: no symptoms Genitourinary: Reports: no symptoms Neurologic/Psychiatric: Reports: no symptoms Objective Objective Last 24 Hour Vital Signs Date Time Temp Pulse Resp B/P (MAP) Pulse Ox O2 Delivery O2 Flow Rate FiO2 05/29/17 16:13 98.4 64 18 135/75 98 Room Air 98.4 05/29/17 12:10 98.6 60 18 132/79 100 Room Air 98.6 05/29/17 08:00 96.8 65 20 145/71 98 Room Air 96.8 05/29/17 04:00 Room Air 05/29/17 04:00 98.2 60 18 138/81 97 Room Air 98.2 05/29/17 00:00 97.7 61 18 140/84 96 Room Air 97.7 05/29/17 00:00 Room Air 05/28/17 20:00 98.4 60 20 131/77 98 Room Air 98.4 05/28/17 20:00 Room Air Intake and Output 05/28/17 05/29/17 19:00 07:00 Intake Total 1350 ml 1275.000 ml Output Total 1900 ml Balance -550 ml 1275.000 ml Intake Oral 600 ml IV Total 750 ml 1275.000 ml Output Urine Total 1900 ml # Voids 4 Laboratory Tests 05/28/17 20:00: Vancomycin Level Trough 2.7L 05/29/17 06:15: Sodium Level 137, Potassium Level 4.6, Chloride Level 104, Carbon Dioxide Level 27, Anion Gap 6, Blood Urea Nitrogen 10, Creatinine 0.7, Estimat Glomerular Filtration Rate > 60, Glucose Level 121H, Calcium Level 8.3L, Phosphorus Level 3.3, Total Creatine Kinase 327H Height (Feet): 5 Height (Inches): 8.00 Weight (Pounds): 159 General Appearance: no apparent distress, alert EENT: normal ENT inspection Neck: normal alignment Cardiovascular: normal rate Respiratory/Chest: lungs clear Abdomen: non tender, soft, no organomegaly Extremities: moderate edema 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
--- NOTE | 2017-05-29 19:32 | Cardiology Report ---
APPROVED REPORT EKG Measurement Heart [id number] Normal sinus rhythm Normal ECG
[2017-05-29] MEDS ORDERED: Potassium Phosphate 15 MEQ in 1/2 NS 1000ml 1,000 ML IV SCH (19:45)
[2017-05-29 20:00] VITALS: BP 146/87
[2017-05-29] MEDS: Depakote 500mg tab ORAL SCH (21:00)
[2017-05-30] VITALS (7 sets, daily range): BP systolic 127–147; BP diastolic 74–86
--- NOTE | 2017-05-30 03:16 | Progress Note ---
DATE: 05/29/2017 CARDIOLOGY PROGRESS NOTE SUBJECTIVE: No distress. Skin lesions are drying. Oral intake improved. OBJECTIVE: VITAL SIGNS: Blood pressure 146/87, pulse 65, respirations 20, and temperature 99.1. LUNGS: Clear. CARDIAC: Regular. ABDOMEN: Soft. EXTREMITIES: No edema. Dry skin lesions on upper extremities with minimal weeping. IMPRESSION: Improved. PLAN: 1. Discontinue intravenous fluids. 2. Continue oral hydration. 3. Continue antibiotics and mobilize. 4. Ongoing skin care. 5. Wound evaluation appreciated. Pedro Page M.D. DR: LISA JOB#: [id number] CC:
[2017-05-30 07:49] LABS: ANION GAP 8 mmol/L (5-15); BLOOD UREA NITROGEN 10 mg/dL (7-18); CALCIUM 8.8 MG/DL (8.5-10.1); CARBON DIOXIDE 26 MMOL/L (21-32); CHLORIDE 99 MMOL/L (98-107); CREATINE KINASE 130 U/L (26-308); CREATININE 0.9 MG/DL (0.55-1.30); POTASSIUM 5.1 MMOL/L (3.5-5.1); SODIUM 132 MMOL/L (136-145)
[2017-05-30] MEDS: Phospha 250 Neutral tab ORAL SCH ×2 (08:33→12:16)
[2017-05-30] MEDS: Thiamine 100mg tab ORAL SCH (08:33)
[2017-05-30] MEDS: Heparin 5000 units/ml inj SUBQ SCH (08:34)
[2017-05-30] MEDS: Vancomycin 1250mg/D5W 250ml IVPB SCH (08:39)
--- NOTE | 2017-05-30 13:01 | Nephrology Progress Note ---
Assessment/Plan Problem List: (1) Hypophosphatemia (2) Rhabdomyolysis (3) SEBAS (acute kidney injury) (4) Altered mental status Plan iv stop, rhabdo resolving Subjective Constitutional: Reports: weakness HEENT: Reports: no symptoms Genitourinary: Reports: no symptoms Objective Objective Last 24 Hour Vital Signs Date Time Temp Pulse Resp B/P (MAP) Pulse Ox O2 Delivery O2 Flow Rate FiO2 05/30/17 12:00 97.0 70 18 135/74 98 Room Air 97.0 05/30/17 08:00 98.0 80 20 129/84 99 Room Air 98.0 05/30/17 04:00 98.9 75 18 130/77 97 98.9 05/30/17 04:00 Room Air 05/30/17 00:00 98.9 72 17 147/86 98 98.9 05/30/17 00:00 Room Air 05/29/17 20:00 Room Air 05/29/17 20:00 99.1 65 20 146/87 99 99.1 05/29/17 16:13 98.4 64 18 135/75 98 Room Air 98.4 Intake and Output 05/29/17 05/30/17 19:00 07:00 Intake Total 840 ml 700.000 ml Output Total 1900 ml 800 ml Balance -1060 ml -100.000 ml Intake Oral 840 ml 300 ml IV Total 400.000 ml Output Urine Total 1900 ml 800 ml Laboratory Tests 05/30/17 07:27: Sodium Level 132L, Potassium Level 5.1, Chloride Level 99, Carbon Dioxide Level 26, Anion Gap 8, Blood Urea Nitrogen 10, Creatinine 0.9, Estimat Glomerular Filtration Rate > 60, Glucose Level 138H, Calcium Level 8.8, Total Creatine Kinase 130, Vancomycin Level Trough 9.4 Height (Feet): 5 Height (Inches): 8.00 Weight (Pounds): 159 General Appearance: no apparent distress, alert EENT: normal ENT inspection Neck: normal alignment Cardiovascular: normal rate Respiratory/Chest: lungs clear Abdomen: non tender, soft Extremities: trace edema 

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
[2017-05-30] MEDS ORDERED: ACETAMINOPHEN325 M1 ORAL (14:45)
[2017-05-30] MEDS ORDERED: DIAZEPAM10 MG ORAL (14:46)
[2017-05-30] MEDS ORDERED: RISPERDAL1 MG PO ×2 (14:48→14:53)
[2017-05-30] MEDS ORDERED: DIVALPROEX SOD500 M2 PO (14:48)
[2017-05-30] MEDS ORDERED: FOLIC ACID1 MG ORAL (14:48)
[2017-05-30] MEDS ORDERED: BACTRIM-DS1 EA ORAL (14:49)
[2017-05-30] MEDS ORDERED: VITAMIN B-1100 MG ORAL (14:49)
[2017-05-30] MEDS ORDERED: DEPAKOTE250 MG PO (14:51)
--- NOTE | 2017-05-30 17:39 | Diagnostic Imaging Report ---
Indication: Shortness of breath Technique: 2 views of the chest Comparison: None Findings: Lungs and pleural spaces are clear. The heart size is normal. The bones are unremarkable. No significant interim change. Impression: Negative
[2017-05-30 17:41] LABS: BASOPHILS % (AUTO) 0.7 % (0.0-2.0); EOSINOPHILS % (AUTO) 0.2 % (0.0-3.0); HEMOGLOBIN 17.2 G/DL (14.2-18.0); LYMPHOCYTES % (AUTO) 20.6 % (20.0-45.0); MEAN CORPUSCULAR VOLUME 90 FL (80-99); MONOCYTES % (AUTO) 10.5 % (1.0-10.0); NEUTROPHILS % (AUTO) 68.1 % (45.0-75.0); PLATELET COUNT 199 K/UL (150-450); RED BLOOD COUNT 5.42 M/UL (4.70-6.10); RED CELL DISTRIBUTION WIDTH 11.5 % (11.6-14.8); WHITE BLOOD COUNT 13.4 K/UL (4.8-10.8)
[2017-05-30] MEDS ORDERED: Bactrim-DS 1 tab ORAL SCH (18:00)
[2017-05-30 18:04] LABS: ANION GAP 10 mmol/L (5-15); BLOOD UREA NITROGEN 10 mg/dL (7-18); CALCIUM 8.7 MG/DL (8.5-10.1); CARBON DIOXIDE 24 MMOL/L (21-32); CHLORIDE 96 MMOL/L (98-107); CREATININE 0.8 MG/DL (0.55-1.30); POTASSIUM 4.2 MMOL/L (3.5-5.1); SODIUM 130 MMOL/L (136-145)
[2017-05-30 18:09] LABS: ALANINE AMINOTRANSFERASE 95 U/L (12-78); ALBUMIN 3.1 G/DL (3.4-5.0); ALBUMIN/GLOBULIN RATIO 0.7 (1.0-2.7); ALKALINE PHOSPHATASE 84 U/L (46-116); ASPARTATE AMINO TRANSFERASE 70 U/L (15-37); BILIRUBIN,TOTAL 0.9 MG/DL (0.2-1.0)
[2017-05-30 18:38] LABS: APPEARANCE,URINE CLEAR; BILIRUBIN, URINE NEGATIVE (NEGATIVE); COLOR,URINE YELLOW; GLUCOSE, URINE (UA) 2+ (NEGATIVE); KETONES,URINE NEGATIVE (NEGATIVE); LEUKOCYTE ESTERASE ,URINE NEGATIVE (NEGATIVE); NITRITE,URINE NEGATIVE (NEGATIVE); PH,URINE 8 (4.5-8.0); PROTEIN,URINE NEGATIVE (NEGATIVE); UROBILINOGEN,URINE 4 MG/DL (0.0-1.0)
[2017-05-30] MEDS: Depakote 500mg tab ORAL SCH (21:00)
[2017-05-30] MEDS: Vancomycin 1250mg/D5W 250ml 250 ML IVPB SCH (23:58)
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
[2017-05-31 03:35] VITALS: BP 128/78
[2017-05-31 08:35] VITALS: BP 122/68
[2017-05-31] MEDS: Thiamine 100mg tab ORAL SCH (08:43)
[2017-05-31] MEDS ORDERED: Levofloxacin 500mg tab ORAL SCH (09:00)
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
[2017-05-31] MEDS: Vancomycin 1250mg/D5W 250ml 250 ML IVPB SCH ×2 (11:57→23:05)
[2017-05-31 12:00] VITALS: BP 110/71
[2017-05-31] MEDS: Cefepime HCl 2 GM in D5W 110 ML IVPB SCH (14:16)
[2017-05-31 16:00] VITALS: BP 126/76
[2017-05-31] MEDS ORDERED: NS 275ml ONE (17:21)
--- NOTE | 2017-05-31 17:36 | Nephrology Progress Note ---
Assessment/Plan Problem List: (1) Hypophosphatemia (2) Rhabdomyolysis (3) SEBAS (acute kidney injury) (4) Altered mental status Plan iv stop, rhabdo resolving Subjective Constitutional: Reports: weakness HEENT: Reports: no symptoms Genitourinary: Reports: no symptoms Neurologic/Psychiatric: Reports: no symptoms Objective Objective Last 24 Hour Vital Signs Date Time Temp Pulse Resp B/P (MAP) Pulse Ox O2 Delivery O2 Flow Rate FiO2 05/31/17 16:00 Room Air 05/31/17 16:00 98.0 55 17 126/76 98 98.0 05/31/17 12:00 97.0 61 18 110/71 97 97.0 05/31/17 12:00 Room Air 05/31/17 08:35 98.2 70 20 122/68 97 98.2 05/31/17 08:35 Room Air 05/31/17 03:35 97.7 60 20 128/78 97 Room Air 97.7 05/31/17 00:00 Room Air 05/30/17 23:28 98.6 70 18 130/76 97 98.6 05/30/17 20:45 98.5 98.5 05/30/17 20:38 98.5 05/30/17 20:00 Room Air 05/30/17 20:00 101.5 71 18 127/75 97 101.5 05/30/17 19:39 101.0 Intake and Output 05/30/17 05/31/17 19:00 07:00 Intake Total 1200 ml 910.000 ml Output Total 1650 ml 1000 ml Balance -450 ml -90.000 ml Intake Oral 1200 ml 240 ml IV Total 670.000 ml Output Urine Total 1650 ml 1000 ml Height (Feet): 5 Height (Inches): 8.00 Weight (Pounds): 159 General Appearance: no apparent distress, alert EENT: normal ENT inspection Neck: normal alignment Cardiovascular: normal rate Respiratory/Chest: lungs clear Abdomen: non tender, soft 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
--- NOTE | 2017-05-31 19:15 | Consultation ---
DATE OF CONSULTATION: 05/31/2017 NOTE: CANCELED DICTATION. Annmarie Mccallum M.D. DR: SENA JOB#: [id number] CC:
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
[2017-05-31 20:00] VITALS: BP 115/72
[2017-05-31] MEDS: Depakote 500mg tab ORAL SCH (20:33)
[2017-06-01 00:59] VITALS: BP 125/68
[2017-06-01] MEDS: Cefepime HCl 2 GM in D5W 110 ML IVPB SCH (01:32)
[2017-06-01 07:20] LABS: ALANINE AMINOTRANSFERASE 68 U/L (12-78); ALBUMIN 2.8 G/DL (3.4-5.0); ALBUMIN/GLOBULIN RATIO 0.7 (1.0-2.7); ALKALINE PHOSPHATASE 63 U/L (46-116); ANION GAP 7 mmol/L (5-15); ASPARTATE AMINO TRANSFERASE 44 U/L (15-37); BILIRUBIN,TOTAL 0.7 MG/DL (0.2-1.0); BLOOD UREA NITROGEN 10 mg/dL (7-18); CALCIUM 8.3 MG/DL (8.5-10.1); CARBON DIOXIDE 26 MMOL/L (21-32); CHLORIDE 100 MMOL/L (98-107); CREATININE 0.8 MG/DL (0.55-1.30); POTASSIUM 4.2 MMOL/L (3.5-5.1); SODIUM 133 MMOL/L (136-145)
[2017-06-01 07:30] LABS: BASOPHILS % (AUTO) 1.4 % (0.0-2.0); EOSINOPHILS % (AUTO) 1.1 % (0.0-3.0); HEMATOCRIT 43.1 % (42.0-52.0); HEMOGLOBIN 15.5 G/DL (14.2-18.0); LYMPHOCYTES % (AUTO) 29.6 % (20.0-45.0); MEAN CORPUSCULAR VOLUME 90 FL (80-99); MONOCYTES % (AUTO) 14.6 % (1.0-10.0); NEUTROPHILS % (AUTO) 53.4 % (45.0-75.0); PLATELET COUNT 165 K/UL (150-450); RED BLOOD COUNT 4.77 M/UL (4.70-6.10); RED CELL DISTRIBUTION WIDTH 11.8 % (11.6-14.8); WHITE BLOOD COUNT 8.7 K/UL (4.8-10.8)
[2017-06-01 08:00] VITALS: BP 122/69
[2017-06-01] MEDS: Thiamine 100mg tab ORAL SCH (09:16)
[2017-06-01] MEDS: Vancomycin 1250mg/D5W 250ml 250 ML IVPB SCH (10:33)
[2017-06-01 12:00] VITALS: BP 117/69
[2017-06-01] MEDS ORDERED: DOXYCYCLINE MO100 MG ORAL ×2 (12:43→12:44)
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
--- NOTE | 2017-06-01 21:05 | General Progress Note ---
Assessment/Plan Assessment/Plan mdd alcohol abuse meth abuse s/p od the pt is not at imminent dts/dt the pt was given one dose of Valium encourage him to take valium Subjective Date patient seen: Jun 01, 2017 Neurologic/Psychiatric: Reports: anxiety, depressed Allergies: Coded Allergies: No Known Allergies (Unverified , 05/25/17) Subjective the pt stated that he is doing better Objective Last 24 Hour Vital Signs Date Time Temp Pulse Resp B/P (MAP) Pulse Ox O2 Delivery O2 Flow Rate FiO2 06/01/17 12:00 97.9 63 20 117/69 100 97.9 06/01/17 08:00 98.4 68 18 122/69 96 98.4 06/01/17 07:01 98.1 06/01/17 06:02 98.1 06/01/17 00:59 98.1 66 20 125/68 96 Room Air 98.1 Intake and Output 05/31/17 06/01/17 19:00 07:00 Intake Total 1250.000 ml 965 ml Output Total 400 ml Balance 850.000 ml 965 ml Intake Oral 400 ml 480 ml IV Total 850.000 ml 485 ml Output Urine Total 400 ml # Voids 1 2 # Bowel Movements 1 Laboratory Tests 06/01/17 05:55: White Blood Count 8.7, Red Blood Count 4.77, Hemoglobin 15.5, Hematocrit 43.1, Mean Corpuscular Volume 90, Mean Corpuscular Hemoglobin 32.6H, Mean Corpuscular Hemoglobin Concent 36.0, Red Cell Distribution Width 11.8, Platelet Count 165, Mean Platelet Volume 6.4L, Neutrophils (%) (Auto) 53.4, Lymphocytes (%) (Auto) 29.6, Monocytes (%) (Auto) 14.6H, Eosinophils (%) (Auto) 1.1, Basophils (%) ( Auto) 1.4, Sodium Level 133L, Potassium Level 4.2, Chloride Level 100, Carbon Dioxide Level 26, Anion Gap 7, Blood Urea Nitrogen 10, Creatinine 0.8, Estimat Glomerular Filtration Rate > 60, Glucose Level 113H, Calcium Level 8.3L, Magnesium Level 2.1, Total Bilirubin 0.7, Aspartate Amino Transf (AST/SGOT) 44H , Alanine Aminotransferase (ALT/SGPT) 68, Alkaline Phosphatase 63, Total Protein 6.9, Albumin 2.8L, Globulin 4.1, Albumin/Globulin Ratio 0.7L 06/01/17 10:00: Vancomycin Level Trough 12.5H Height (Feet): 5 Height (Inches): 8.00 Weight (Pounds): 159 Javier Hogan M.D. Jun 01, 2017 21:05
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
== END 2017-06-01 15:29 | DRG 602 ==
LOC: EDBD 12:08 → EMR 13:14 → EDBEDREQ 15:46 → 2W 15:55 → EDBD 15:55 → EDBEDREQ 16:09 → 2W 17:46 → 4W 05-27 21:18
DX: L03.114 Cellulitis of left upper limb (principal); G92 Toxic encephalopathy; N17.9 Acute kidney failure, unspecified; E87.1 Hypo-osmolality and hyponatremia; E87.2 Acidosis; M62.82 Rhabdomyolysis; E44.1 Mild protein-calorie malnutrition; L03.115 Cellulitis of right lower limb; L03.116 Cellulitis of left lower limb; L03.113 Cellulitis of right upper limb; E87.8 Other disorders of electrolyte and fluid balance, not elsewhere classified; T43.621A Poisoning by amphetamines, accidental (unintentional), initial encounter; F17.200 Nicotine dependence, unspecified, uncomplicated; F10.20 Alcohol dependence, uncomplicated; E86.0 Dehydration; M47.9 Spondylosis, unspecified; E83.39 Other disorders of phosphorus metabolism; J43.9 Emphysema, unspecified; F15.10 Other stimulant abuse, uncomplicated; F31.9 Bipolar disorder, unspecified; B19.20 Unspecified viral hepatitis C without hepatic coma; R50.9 Fever, unspecified; T22.412A Corrosion of unspecified degree of left forearm, initial encounter; Z68.24 Body mass index [BMI] 24.0-24.9, adult; T54.3X1A Toxic effect of corrosive alkalis and alkali-like substances, accidental (unintentional), initial encounter; T32.0 Corrosions involving less than 10% of body surface; Y92.89 Other specified places as the place of occurrence of the external cause
CPT/HCPCS: 36415; 71046; 80048; 80053; 80202; 80307; 80329; 81003; 82248; 82550; 82570; 82607; 82746; 83735; 83935; 84100; 84300; 84443; 84550; 85025; 87040; 87081; 93005; 99285; C9399